=== PATIENT | female | born 1950 | race Caucasian/White ===

== ENCOUNTER 2024-10-26 08:33 | Outpatient (CLI) | payer MEDICARE, SELFPAY ==
--- NOTE | 2024-10-26 10:24 | P.ANES_ITS ---
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
--- NOTE | 2024-10-26 10:24 | W.ANESCHARGE ---
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
--- NOTE | 2024-10-26 10:29 | P.ANES_ITS ---
Anesthesia Charges Start Date/Time Anesthesia Start Date: 10/26/24 Anesthesia Start Time: 09:49 Stop Date/Time Anesthesia Stop Date: 10/26/24 Anesthesia Stop Time: 10:22 Summary Extremes of Age - Over 70 or under 1: MDA Coding CPT Codes CPT Codes: ANES LWR INTST SCR COLSC - 74090 ([id number]) P2 - PATIENT W/MILD SYST DISEASE, QK - SENIOR DIRECTOR FINANCE 2-4 CNCRNT ANES PROC, QX - VERTICAL PUNCH OPERATOR SVC W/ MD MED DIRECTION Additional Codes: Summary - Extremes of Age - Over 70 or under 1: MDA ([id number])
--- NOTE | 2024-10-26 10:29 | W.ANESCHARGE ---
Anesthesia Charges Start Date/Time Anesthesia Start Date: 10/26/24 Anesthesia Start Time: 09:49 Stop Date/Time Anesthesia Stop Date: 10/26/24 Anesthesia Stop Time: 10:22 Summary Extremes of Age - Over 70 or under 1: MDA Coding CPT Codes CPT Codes: ANES LWR INTST SCR COLSC - 73015 ([id number]) P2 - PATIENT W/MILD SYST DISEASE, QK - GERIATRIC NURSING ASSISTANT 2-4 CNCRNT ANES PROC, QX - STRAW HAT MACHINE OPERATOR SVC W/ MD MED DIRECTION Additional Codes: Summary - Extremes of Age - Over 70 or under 1: MDA ([id number])
== END 2024-10-26 08:34 | disposition home or self-care (01) ==
LOC: OP CLINIC 08:37
PROVIDERS: PCP Physician Assistant Medical; Visit Provider Internal Medicine Gastroenterology
DX: Z12.11 Encounter for screening for malignant neoplasm of colon (principal); Q43.8 Other specified congenital malformations of intestine; Z80.0 Family history of malignant neoplasm of digestive organs
CPT/HCPCS: 00812; 45378; 99100; J2704

== ENCOUNTER 2025-02-12 18:02 | Outpatient (CLI) | payer OTHER, MEDICARE, SELFPAY | END 2025-02-12 18:03 | disposition home or self-care (01) | LOC: AMB 02-18 18:28 | PROVIDERS: PCP Physician Assistant Medical; Visit Provider Student in an Organized Health Care Education/Training Program | DX: S09.90XA Unspecified injury of head, initial encounter (principal); V03.90XA Pedestrian on foot injured in collision with car, pick-up truck or van, unspecified whether traffic or nontraffic accident, initial encounter; Y92.414 Local residential or business street as the place of occurrence of the external cause | CPT/HCPCS: A0425; A0427 ==